=== PATIENT | female | born 1975 | race Hispanic/Latino ===

== ENCOUNTER 2024-11-29 04:51 | Emergency (ER) | payer BC, OTHER ==
[~2024-11-29] VITALS: Ht 170.2 cm; Wt 70.3 kg
[~2024-11-29 04:51] MED LIST: DICYCLOMINE HCL20 MG PO; ESGIC 50-325-41 EACH PO; ONDANSETRON ODT4 MG PO
[2024-11-29 05:27] LABS: BASOPHILS % 0.3 % (0.0-1.0); EOSINOPHILS % 2.3 % (0.0-6.0); LYMPHOCYTES % 16.4 % (18.0-39.1); MONOCYTES % 10.5 % (4.4-11.3); NEUTROPHILS % 70.3 % (38.7-80.0); RED CELL DISTRIBUTION WIDTH 15.3 % (11.7-14.4)
[2024-11-29] MEDS: SODIUM CHLORIDE 0.9% 1000ML 1,000 ML IV STA (05:30)
[2024-11-29 05:47] LABS: EST GLOMERULAR FILTRATION RATE 109.0 ML/MIN (>=60)
[2024-11-29] MEDS ORDERED: IOPAMIDOL 370 MG/ML 100 ML INFUS..BTL INJ ONE (06:02)
[2024-11-29 06:08] LABS: LEUKOCYTE ESTERASE ,URINE MODERATE (NEGATIVE); PROTEIN,URINE DIPSTICK 2+ (NEGATIVE); URINE UROBILINOGEN 0.2 mg/dL (0.2 - 1)
[2024-11-29 06:09] LABS: PREGNANCY TEST, URINE NEGATIVE (NEGATIVE)
[2024-11-29 06:31] LABS: WBC,URINE (MAN) >50 /HPF (0-5)
[2024-11-29] MEDS ORDERED: CEFDINIR300 MG PO (07:19)
[2024-11-29 07:26] VITALS: PULSE 69; RESP 18; TEMP 98.3; O2SAT 99
== END 2024-11-29 07:40 | disposition home or self-care (01) ==
LOC: ER 05:03
DX: N39.0 Urinary tract infection, site not specified (principal); R31.9 Hematuria, unspecified; I10 Essential (primary) hypertension; E03.9 Hypothyroidism, unspecified; Z85.3 Personal history of malignant neoplasm of breast; Z98.84 Bariatric surgery status
CPT/HCPCS: 36415; 74177; 80053; 81001; 81025; 83690; 85025; 99284; J7030; Q9967